=== PATIENT | female | born 1960 | race Asian ===

== ENCOUNTER → 2023-08-30 10:02 | Outpatient (CLI) | payer OTHER, SELFPAY | LOC: LAB 10:03 | PROVIDERS: PCP Nurse Practitioner Family; Referring Provider Nurse Practitioner Family; Visit Provider Nurse Practitioner Family | DX: Z13.1 Encounter for screening for diabetes mellitus (principal); E66.9 Obesity, unspecified | CPT/HCPCS: 36415; 83036 ==

== ENCOUNTER → 2023-10-26 09:07 | Outpatient (CLI) | payer OTHER, SELFPAY ==
--- NOTE | 2023-11-23 10:56 | DIAB.MNT ---
Initial Diabetes Medical Nutrition Therapy Assessment Name: Brunilda Philip Date: 10/26/23 Time: 090-4152a Dx: Type II Diabetes Mallika presents with her for initial Dm visit. Diagnosed in August with hgA1c of 7%. Feels that Dm is overwhelming due to managing dm and heart issues per report. Her and her both have Dm. Loves to eat out on Monday date night. Trying to choose salads when eating out. Now cutting out sugar from coffee and cut out rice completely. Endorses difficulty managing wt. 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 Does not want to take Metformin for DM management. Saw eye doctor this week without concerns Diet Recall: 8-10a: eggs, 2x ye grain bread with rhubarb spread, using avocado and coconut oil 1230p: tea with cherries and water 430-5p: fish with veggies and jello OR meat and veggies sn; sometimes 1-2 small cookies or 1/2 pint ice cream 1/4 x 12oz water, 1-2c tea, coffee 1c, sometimes lemonade Anthropometrics: Ht: 5' Wt: 194# 09/2023 Physical Activity: Walking 20-30 min 4x per week Self-Monitoring Blood Glucose: Checking FBG with a few >130 mg/dl Date Pre Post Pre Post Pre Post HS 6/7 131 6/8 126 6/9 133 6/10 127 6/11 137 6/12 133 /13 122 Diabetes Medications: None Pertinent Labs: hgA1c: 7% 08/2023 Past Medical History: (Last Updated 09/14/23 @ 15:25 by Angy Cabrera [facility]) Cataracts, bilateral (~2018) Diabetes mellitus Hyperlipidemia Hypertension Seasonal allergies Nutrition Rx: Carbohydrates: Meal:30-45g Snack:15-30g Nutrition Diagnosis: - Intervention: This participant was very receptive. Provided appropriate educational handouts. Discussed the following topics: Completed intake assessment. Discussed barriers to care. Pathophysiology of T2DM HgA1c, its correlation to blood glucose numbers, and rationale for goal Importance of self-monitoring, how often, and when to check. Suggested checking at different times to evaluate meals Plate Method, impact of macronutrients on blood sugar, meal timing, pairing macronutrients and spreading out carbohydrates for better blood glucose management Recommended servings for carbohydrates at meals and snacks Heart health nutrition Role of physical activity Created SMART goals for patient self-care and success. Goals: Check a few pc readings Try brown rice Choose whole grain tin bread Start with 6c water per day walk 4 days per week Follow-up: FELIPE JONES follow-up in 3-4 weeks Emma Blake RDN, ROBERT Certified Diabetes Care and Venetian Blind Machine Operator P: [phone] Thank you for this referral
== END ==
LOC: DIET 09:08
PROVIDERS: PCP Nurse Practitioner Family; Referring Provider Nurse Practitioner Family
DX: E11.9 Type 2 diabetes mellitus without complications (principal); Z71.3 Dietary counseling and surveillance
CPT/HCPCS: 97802

== ENCOUNTER → 2023-11-24 16:31 | Outpatient (CLI) | payer OTHER, SELFPAY ==
--- NOTE | 2023-11-24 16:38 | DIAB.MNTFU ---
Follow-up Diabetes Medical Nutrition Therapy Assessment Name: Brunilda Philip Date: 11/24/23 Time: 440-540p Dx: Type II Diabetes Mallika presents for follow-up Dm visit. Has been checking BG. Has increased water intake, which she reports has improved BM. States she notices improvement in her level of fatigue, which likely improved with better blood sugars. Ordering more salads when eating out. Being conscious of CHO intake. No longer adding sweetener to coffee. Reduced ice cream portions to 1/2 c Avoiding all rice, even brown rice. One night went out to eat burger and fries with sweet tea and had elevation above 200mg/dl. Diet Recall: 8-10a: eggs, 2x multigrain bread +/- rhubarb jelly, with meat, tea unsweet 1-130p: low Na chips 1 cup 430-5p: fish with veggies OR meat and veggies sn;: 1/2 c ice cream 36oz water per day, 1-2c tea, coffee 1c Anthropometrics: Ht: 5' Wt: 194# 09/2023 Physical Activity: Walking 20-30 min 3-4x per week after lunch. Self-Monitoring Blood Glucose: Checking FBG and some pc readings. All in goal with an exception of a few FBG and one pc readings after fast food with sweet beverage, up to 253 mg/dl. FBG running 111-130 most days with a few in low 140s. Diabetes Medications: None Pertinent Labs: hgA1c: 7% 08/2023 Past Medical History: (Last Updated 09/14/23 @ 15:25 by Angy Cabrera, [facility]) Cataracts, bilateral (~2019) Diabetes mellitus Hyperlipidemia Hypertension Seasonal allergies Nutrition Rx: Carbohydrates: Meal:30-45g Snack:15-30g Nutrition Diagnosis: - Excessive Na intake r/t eating out frequency aeb pt report - Food and nutrition related knowledge deficit r/t new dx T2Dm aeb elevated hgA1c and pt report Intervention: This participant was very receptive. Provided appropriate educational handouts. Discussed the following topics: Completed intake assessment. Discussed barriers to care. nutrition myths and discuss how to sustain healthy eating long-term through moderation and variety Define macronutrients and determine their impact on blood sugars Discuss macronutrient pairing, Plate Method, and carb counting Review general recommendations for carbohydrates Practice label reading Discuss the role of fiber in diabetes and provide examples of sources Review heart health nutrition: fats, fiber, and sodium Determine recommendations for grocery shopping and eating out Discuss alcohol recommendations Review the role of substitute sugars in diabetes management Review of BG trends and goals Created SMART goals for patient self-care and success. Goals: Check a few pc readings- met Try brown rice- d/c Choose whole grain thin bread- could not find Start with 6c water per day - met walk 4 days per week - improved take out your measuring cups to measure carbs- new Discuss reducing eating out frequency with - new Follow-up: FELIPE JONES follow-up in 3-4 weeks Emma Blake RDN, ROBERT Certified Diabetes Care and Home Sales Consultant P: [phone] Thank you for this referral
== END ==
LOC: DIET 16:31
PROVIDERS: PCP Nurse Practitioner Family; Referring Provider Nurse Practitioner Family
DX: E11.9 Type 2 diabetes mellitus without complications (principal); Z71.3 Dietary counseling and surveillance
CPT/HCPCS: 97803

== ENCOUNTER → 2023-12-27 13:39 | Outpatient (CLI) | payer OTHER, SELFPAY ==
--- NOTE | 2024-02-13 10:06 | DIAB.FU ---
Follow-up Diabetes Education Assessment Name: Brunilda Philip Date: 12/27/23 Time: 205-250p Dx: Type II Diabetes Mallika presents for follow-up Dm visit. Reports increased energy with improved BG. States she can now walk without fatigue and with more pace. States she feels color mixer in general. Endorses balanced breakfast, recent reading of 97mg/dl after open faced breakfast sandwich with veggies. Putting cream on feet due to dryness to reduce risk of cracks/infection. Dental q 3 months up to date on eye appt Has been working on reducing eating out Interested in classes, but unable to attend. Would like to review class two info today. Anthropometrics: Ht: 5' Wt: 194# 09/2023 Physical Activity: Walking 20-30 min 3-4x per week after lunch. Self-Monitoring Blood Glucose: Checking FBG and some pc readings. most in goal. Recent FB, 107, 118, 114, 121 Postprandial: 97, 122, 113 Diabetes Medications: None Pertinent Labs: hgA1c: 7% 08/2023 Past Medical History: (Last Updated 09/14/23 @ 15:25 by Angy Cabrera, [facility]) Cataracts, bilateral (~2018) Diabetes mellitus Hyperlipidemia Hypertension Seasonal allergies Intervention: This participant was very receptive. Provided appropriate educational handouts. Discussed the following topics: BG trends and review Hyperglycemia and impact on energy/fatigue Diabetes pathophysiology Discuss different types of diabetes Review criteria for diagnosing diabetes Review HgA1c measurement and associated blood sugars Review blood sugar monitoring safety, technique, and goals Discuss ways to reduce complications associated with diabetes, includes microvascular and macrovascular complications Review diabetes medications types, action, and side effects Health care visits recommended for people with T2DM Immunization recommended for people with T2DM SMART goals review Goals: Check a few pc readings- met Try brown rice- d/c Choose whole grain thin bread- could not find Start with 6c water per day - met walk 4 days per week - improved take out your measuring cups to measure carbs- new Discuss reducing eating out frequency with - new Follow-up: FELIPE JONES follow-up in 2-3 months Emma Blake RDN, ROBERT Certified Diabetes Care and Design Engineer Agricultural Equipment P: [phone] Thank you for this referral
== END ==
PROVIDERS: PCP Nurse Practitioner Family; Referring Provider Nurse Practitioner Family
DX: E11.9 Type 2 diabetes mellitus without complications (principal); Z71.3 Dietary counseling and surveillance
CPT/HCPCS: G0108

== ENCOUNTER → 2023-12-28 08:36 | Outpatient (CLI) | payer OTHER, SELFPAY ==
[2023-12-28 10:08] LABS: Add Manual Diff / Slide Review NO; Basophils Absolute Auto 0 /uL (0-100); Basophils Percent Auto 0.3 % (0-2); Eosinophils Absolute Auto 100 /uL (0-450); Eosinophils Percent Auto 1.5 % (2-4); Hematocrit 40.8 % (36-46); Hemoglobin 13.6 g/dL (12.0-16.0); Lymphocytes Absolute Auto 2500 /uL (1100-4500); Lymphocytes Percent Auto 38.4 % (25-40); Mean Corpuscular HGB Conc 33.4 % (30-36); Mean Corpuscular Hemoglobin 30.3 PG (26-34); Mean Corpuscular Volume 90.8 fL (80-100); Monocytes Absolute Auto 500 /uL (0-900); Monocytes Percent Auto 7.2 % (3-14); Neutrophils Absolute Auto 3400 /uL (1500-7000); Neutrophils Percent Auto 52.6 % (50-75); Platelet Count 187 X10^3/uL (150-400); Red Cell Distribution Width 13.9 % (11.6-14.8); White Blood Cell Count 6.5 X10^3/uL (4.5-11.0)
[2023-12-28 10:30] LABS: Hemoglobin A1C% w Est Avg Glu 6.2 % (4.0-6.0)
[2023-12-28 10:33] LABS: Alanine Aminotransferase 43 IU/L (<35); Albumin 3.9 g/dL (3.5-5.0); Albumin Globulin Ratio 1.4 (1.0-2.8); Alkaline Phosphatase 58 U/L (38-126); Aspartate Aminotransferase 28 IU/L (14-36); BUN Creatinine Ratio 27.4 (6-22); Bilirubin Total 0.8 mg/dL (0.2-1.3); Blood Urea Nitrogen 17 mg/dL (7-17); Calcium 10.1 mg/dL (8.4-10.2); Carbon Dioxide 27 mmol/L (22-32); Chloride 105 mmol/L (98-107); Cholesterol 100 mg/dL (140-199); Estimated Glomerular Filt Rate > 60 mL/min (>60); Globulin 2.8 g/dL (1.7-4.1); Glucose 115 mg/dL (80-110); HDL Cholesterol 40 mg/dL (40-60); HEMOLYSIS < 15 (0-50); LDL Cholesterol Calculated 49 mg/dL (<100); Sodium 139 mmol/L (137-145); Total Protein 6.7 g/dL (6.3-8.2); Triglycerides 55 mg/dL (35-150)
[2023-12-28 11:01] LABS: TSH w/ Reflex to FT4 1.87 uIU/mL (0.47-4.68)
== END ==
LOC: LAB 08:37
PROVIDERS: PCP Nurse Practitioner Family; Referring Provider Nurse Practitioner Family; Visit Provider Nurse Practitioner Family
DX: E11.9 Type 2 diabetes mellitus without complications (principal); I25.10 Atherosclerotic heart disease of native coronary artery without angina pectoris; E78.5 Hyperlipidemia, unspecified; I10 Essential (primary) hypertension
CPT/HCPCS: 36415; 80053; 80061; 83036; 84443; 85025

== ENCOUNTER → 2024-03-20 08:47 | Outpatient (CLI) | payer OTHER, SELFPAY ==
--- NOTE | 2024-03-20 09:50 | DIAB.MNTFU ---
Follow-up Diabetes Medical Nutrition Therapy Assessment Name: Brunilda Philip Date: 03/20/24 Time: 90a Dx: Type II Diabetes Mallika presents for follow-up Dm visit. Has continued with lower CHO diet. No rice, but increased snack and ice cream after low CHO dinner each night. BG overall well managed, though there are no postprandial numbers for review. Recent HgA1c much improved ta 6.2% in December. Using measuring cups and weighing foods. Has questions about bittermelon portions, non starchy veg. Eating half portions when eating out. Did discuss reducing eating out with . He too has been making health changes due to recent labs. Endorses less falling asleep during tv or reading since improved BG. Diet recall; 10a: thin bread, davalos sometimes, +/- egg and coffee with little sweet creamer 4-5p: soup with veggies and meat 5p: 1/2-1c ice cream OR veggie stick chips OR 1 piece of chocolate Anthropometrics: Ht: 5' Wt: 191.5# 12/2023 194# 09/2023 Physical Activity: Walking 30 min daily. States cad application support specialist rec'd 60 mins per day. Self-Monitoring Blood Glucose: Checking FBG and HS. most in goal. Forgets to check pc readings after dinner/snack. Recent FBG all in goal per reprot: 98-130mg/dl HS: reported highest 148mg/dl Diabetes Medications: None Pertinent Labs: hgA1c: 7% 08/2023 6.2% 12/2023 Past Medical History: (Last Updated 09/14/23 @ 15:25 by Angy Cabrera, [facility]) Cataracts, bilateral (~2018) Diabetes mellitus Hyperlipidemia Hypertension Seasonal allergies Nutrition Rx: Carbohydrates: Meal:30-45g Snack:15-30g Nutrition Diagnosis: - Inadequate fiber intake r/t limited whole grains, fruit or veggies aeb diet recall Intervention: This participant was very receptive. Provided appropriate educational handouts. Discussed the following topics: BG trends and review Nonstarchy veg benefits and portion recs Eating out recs Physical activity strategies: resistance 2x per week and ways to increase cardio during the day, ie stationary bike higher fiber CHO options Goals: Choose whole grain thin bread- met walk 4 days per week - met take out your measuring cups to measure carbs- met Discuss reducing eating out frequency with - met Set a timer to check 1-2 hours after evening meal/snack- new Try brown rice at dinner 1/2-2/3c - new Follow-up: FELIPE JONES follow-up in September per pt req. Emma Blake, FELIPE, ROBERT Certified Diabetes Care and Manager Culinary P: [phone] Thank you for this referral
== END ==
PROVIDERS: PCP Nurse Practitioner Family; Referring Provider Nurse Practitioner Family
DX: E11.9 Type 2 diabetes mellitus without complications (principal); Z71.3 Dietary counseling and surveillance; I10 Essential (primary) hypertension; E78.2 Mixed hyperlipidemia; Z68.30 Body mass index [BMI] 30.0-30.9, adult
CPT/HCPCS: 97803

== ENCOUNTER → 2024-03-20 10:53 | Outpatient (CLI) | payer OTHER, SELFPAY ==
[2024-03-20 12:18] LABS: Hemoglobin A1C% w Est Avg Glu 6.5 % (4.0-6.0)
== END ==
PROVIDERS: PCP Nurse Practitioner Family; Referring Provider Nurse Practitioner Family; Visit Provider Nurse Practitioner Family
DX: E11.9 Type 2 diabetes mellitus without complications (principal); Z71.3 Dietary counseling and surveillance; I10 Essential (primary) hypertension; E78.2 Mixed hyperlipidemia; Z68.30 Body mass index [BMI] 30.0-30.9, adult
CPT/HCPCS: 36415; 83036; 97803

== ENCOUNTER 2024-08-15 07:51 | Day surgery (SDC) | payer OTHER, SELFPAY ==
[2024-08-15 08:43] VITALS: BP 150/83; PULSE 85; RESP 18; TEMP 36.1; O2SAT 95
[2024-08-15] MEDS: LACTATED RINGERS 1,000 ML 42 ML IV (08:53)
--- NOTE | 2024-08-15 09:58 | PM.HP.IH.1 ---
History of Present Illness History of Present Illness Date Patient Seen: 08/15/24 Time Patient Seen: 09:59 Chief complaint: SDC Narrative: Brunilda is a 64-year-old woman who is here for a screening colonoscopy. She has had one other screening colonoscopy 14 years ago at age 50. No family history of colon cancer. [facility] Medical History (Updated 08/15/24 @ 09:59 by Anastacio Diaz MD) Obstructive sleep apnea Diabetes mellitus Seasonal allergies Cataracts, bilateral (~2018) Hyperlipidemia Hypertension Surgical History (Updated 08/30/23 @ 09:36 by Vanita Welch MA) S/P LASIK surgery of both eyes (~2022) Hx of cataract surgery (~2018) H/O total hysterectomy with bilateral salpingo-oophorectomy (BSO) (~2007) S/P repair of PDA (patent ductus arteriosus) (~1982) Stented coronary artery (~2012) Hx of CABG (~2012) Family History (Updated 08/30/23 @ 09:25 by Vanita Welch MA) Father Hypertension Mother Heart disease Social History (Updated 08/30/23 @ 09:22 by Vanita Welch MA) marital status: household members: spouse and family lives independently: Yes education level: high school occupational status: other Smoking Status: Never smoker alcohol intake: never Meds Home Medications and Allergies Home Medications Medication Instructions Recorded Confirmed Type aspirin 81 mg tablet,delayed 81 mg PO DAILY #90 tabs 09/25/23 08/15/24 Rx release atorvastatin 40 mg tablet 40 mg PO QPM #90 tabs 09/25/23 08/15/24 Rx blood-glucose meter (FreeStyle #1 ea 09/25/23 03/20/24 Rx [place] Lite kit) carvedilol 25 mg tablet 25 mg PO BID #180 tabs 09/25/23 08/15/24 Rx ezetimibe 10 mg tablet (Zetia) 10 mg PO DAILY #90 tabs 09/25/23 08/15/24 Rx fluticasone propionate 50 1 spray intranasal DAILY #48 grams 09/25/23 08/15/24 Rx mcg/actuation nasal spray,suspension lisinopril 20 1 tab PO DAILY #90 tabs 09/25/23 08/15/24 Rx mg-hydrochlorothiazide 25 mg tablet blood sugar diagnostic (FreeStyle #100 ea 12/29/23 03/20/24 Rx Lite Strips) lancets 28 gauge (FreeStyle #100 ea 12/29/23 03/20/24 Rx Lancets) sodium,potassium,mag sulfates 17.5 See Rx Instructions PO .COMPLEX 07/04/24 Rx gram-3.13 gram-1.6 gram oral soln #354 mL (Suprep Bowel Prep Kit) Allergies Allergy/AdvReac Type Severity Reaction Status Date / Time No Known Drug Allergies Allergy Verified 08/15/24 08:39 Exam Vital Signs (past 8 hours): - 08/15/24 08:43 Temperature 97 F L Pulse Rate 85 Respiratory Rate 18 Blood Pressure 150/83 H Pulse Oximetry 95 Oxygen Delivery Method Room Air Oxygen Delivery Method Room Air Const General: No acute distress Resp Effort & Inspection: normal respiratory effort Assessment & Plan Assessment and plan (1) Colon cancer screening: Status: Acute Plan Colonoscopy Time-Based Coding :: [TOTAL MINUTES] spent with patient and on the chart (including review of chart, obtaining history, exam, reviewing outside data, placing orders, documenting exam and treatment plan, and counseling patient) on [DATE]. PROFEE Asbestos Abatement Technician Document charge(s): No
--- NOTE | 2024-08-15 10:24 | PM.OP.COLON ---
Operative Date/Time/Diagnoses Date of procedure: 08/15/24 Time of procedure: 10:24 Pre-op diagnosis: Colon cancer screening Post-op diagnosis: same Procedure & Clinicians Study performed: Colonoscopy Same procedure as scheduled: Yes Surgeon: Anastacio Diaz Procedure Notes Procedure in detail: Surgeon: Anastacio Diaz MD Anesthesia: Kenisha Linder CRNA Procedure: The patient was brought to the endoscopy suite, placed in left lateral decubitus position. The patient was connected to monitoring devices. A time-out was performed. Sedation was administered. Once the patient was adequately sedated, a digital rectal exam was performed and was normal. The scope was then inserted and advanced to the cecum where the appendiceal orifice was identified and photographed. The scope was then slowly withdrawn over greater than 6 minutes. The mucosa was thoroughly inspected. No abnormalities were found. The scope was retroflexed in the rectum. The scope was straightened and removed. The patient was awakened and brought to recovery. Scope withdrawal time: 8 minutes Sedation time: 15 minutes EBL: 0 Findings: Normal colon Post-procedure Recommendations: Colonoscopy in 10 years Disposition: PACU
[2024-08-15 10:25] VITALS: BP 107/51; PULSE 73; RESP 14; TEMP 36.7; O2SAT 100
[2024-08-15 10:33] VITALS: BP 110/54; PULSE 76; RESP 17; TEMP 36.6; O2SAT 100
[2024-08-15 10:38] VITALS: BP 105/58; PULSE 75; RESP 15; O2SAT 99
== END 2024-08-15 10:45 | disposition home or self-care (01) ==
PROVIDERS: PCP Nurse Practitioner Family; Referring Provider Surgery; Visit Provider Surgery
PROC: 0DJD8ZZ Inspection of Lower Intestinal Tract, Via Natural or Artificial Opening Endoscopic (ICD-10-PCS; CPT 45378; principal; 2024-08-15 09:15)
DX: Z12.11 Encounter for screening for malignant neoplasm of colon (principal)
CPT/HCPCS: 45378; J2704

== ENCOUNTER → 2024-09-18 08:56 | Outpatient (CLI) | payer OTHER, SELFPAY ==
[2024-09-18 10:02] LABS: Add Manual Diff / Slide Review NO; Basophils Absolute Auto 0 /uL (0-100); Basophils Percent Auto 0.5 % (0-2); Eosinophils Absolute Auto 100 /uL (0-450); Eosinophils Percent Auto 2.2 % (2-4); Hematocrit 41.3 % (36-46); Hemoglobin 13.8 g/dL (12.0-16.0); Lymphocytes Absolute Auto 2400 /uL (1100-4500); Lymphocytes Percent Auto 40.3 % (25-40); Mean Corpuscular HGB Conc 33.4 % (30-36); Mean Corpuscular Hemoglobin 30.3 PG (26-34); Mean Corpuscular Volume 90.6 fL (80-100); Monocytes Absolute Auto 400 /uL (0-900); Monocytes Percent Auto 7.4 % (3-14); Neutrophils Absolute Auto 2900 /uL (1500-7000); Neutrophils Percent Auto 49.6 % (50-75); Platelet Count 199 X10^3/uL (150-400); Red Blood Cell Count 4.56 X10^6/uL (4.0-5.2); Red Cell Distribution Width 14.2 % (11.6-14.8); White Blood Cell Count 5.9 X10^3/uL (4.5-11.0)
[2024-09-18 10:09] LABS: Hemoglobin A1C% w Est Avg Glu 6.1 % (4.0-6.0)
[2024-09-18 10:21] LABS: Alanine Aminotransferase 29 IU/L (<35); Albumin 4.1 g/dL (3.5-5.0); Albumin Globulin Ratio 1.5 (1.0-2.8); Alkaline Phosphatase 59 U/L (38-126); Aspartate Aminotransferase 29 IU/L (14-36); BUN Creatinine Ratio 22.1 (6-22); Bilirubin Total 0.9 mg/dL (0.2-1.3); Blood Urea Nitrogen 15 mg/dL (7-17); Calcium 10.3 mg/dL (8.4-10.2); Carbon Dioxide 25 mmol/L (22-32); Chloride 106 mmol/L (98-107); Cholesterol 101 mg/dL (140-199); Estimated Glomerular Filt Rate > 60 mL/min (>60); Globulin 2.8 g/dL (1.7-4.1); Glucose 106 mg/dL (70-99); HDL Cholesterol 41 mg/dL (40-60); HEMOLYSIS < 15 (0-50); LDL Cholesterol Calculated 48 mg/dL (<100); Sodium 140 mmol/L (137-145); Total Protein 6.9 g/dL (6.3-8.2); Triglycerides 61 mg/dL (35-150)
[2024-09-18 10:50] LABS: Hepatitis B Surface Antigen NEGATIVE s/c (NEGATIVE)
[2024-09-18 11:13] LABS: HIV 1 & 2 Ab/Ag 4th Gen Combo NEGATIVE (NEGATIVE); Hep C Virus Ab w/Reflex Quant REACTIVE s/c (NEGATIVE)
== END ==
LOC: LAB 08:57
PROVIDERS: PCP Nurse Practitioner Family; Referring Provider Nurse Practitioner Family; Visit Provider Nurse Practitioner Family
DX: Z11.59 Encounter for screening for other viral diseases (principal); Z11.4 Encounter for screening for human immunodeficiency virus [HIV]; E78.5 Hyperlipidemia, unspecified; I10 Essential (primary) hypertension; E11.9 Type 2 diabetes mellitus without complications; Z95.1 Presence of aortocoronary bypass graft; Z95.5 Presence of coronary angioplasty implant and graft
CPT/HCPCS: 36415; 80053; 80061; 83036; 85025; 86803; 87340; 87389; 87522

== ENCOUNTER → 2024-09-25 10:51 | Outpatient (CLI) | payer OTHER, SELFPAY ==
--- NOTE | 2024-09-25 14:16 | DIAB.MNTFU ---
Follow-up Diabetes Medical Nutrition Therapy Assessment Name: Brunilda Philip Date: 09/25/24 Time: Dx: Type II Diabetes Mallika presents for follow-up Dm visit. Great hg1c of 6.1% this month. Has continued with lower CHO diet. No or reduced rice intake, even during her visit to the [facility] per report. Has tried incorporating more brown rice. Eating half portions when eating out. Increased water intake. Feeling less fatigue and less SOB. Has had some wt loss since last visit as well. Diet recall; 8-9a: thin bread, meat +/- greens and coffee with little sweet creamer sn: 1oz bag chips 4-:veggies and meat 5p: 1/2-1c ice cream OR veggie stick chips OR 1 piece of chocolate Anthropometrics: Ht: 5' Wt: 156# 09/2024 191.5# 12/2023 194# 09/2023 Physical Activity: Walking 30 min 3x per week. Plans to restart chair yoga. Self-Monitoring Blood Glucose: Checking FBG. Recent FBG all in goal per reprot: 110-130mg/dl Diabetes Medications: None Pertinent Labs: hgA1c: 7% 08/2023 6.2% 12/2023 6.1% 09/2024 Past Medical History: (Last Updated 09/14/23 @ 15:25 [facility] Cataracts, bilateral (~2018) Diabetes mellitus Hyperlipidemia Hypertension Seasonal allergies Nutrition Rx: Carbohydrates: Meal:30-45g Snack:15-30g Nutrition Diagnosis: - Inadequate fiber intake r/t limited whole grains, fruit or veggies aeb diet recall- improved/in progress Intervention: This participant was very receptive. Provided appropriate educational handouts. Discussed the following topics: BG trends and review Incorporating higher fiber Physical activity Goals: Set a timer to check 1-2 hours after evening meal/snack- not met Try brown rice at dinner 1/2-2/3c - met Restart chair yoga- new Follow-up: FELIPE JONES follow-up in 3-6 months Emma Blake RDN, ROBERT Certified Diabetes Care and Roller Maker P: [phone] Thank you for this referral
== END ==
PROVIDERS: PCP Nurse Practitioner Family; Referring Provider Nurse Practitioner Family
DX: E11.9 Type 2 diabetes mellitus without complications (principal); Z71.3 Dietary counseling and surveillance
CPT/HCPCS: 97803

== ENCOUNTER → 2025-04-18 10:53 | Outpatient (CLI) | payer MEDICARE, OTHER, SELFPAY ==
--- NOTE | 2025-05-22 16:21 | DIAB.MNTFU ---
Follow-up Diabetes Medical Nutrition Therapy Assessment Name: Brunilda Philip Date: 04/18/25 Time: 1296-6906o Dx: Type II Diabetes Mallika presents for follow-up Dm visit. Last visit 09/2024. Continues to limit rice portion. Restarted chair yoga. having some right knee pain. Plans to see ortho. Diet Recall: 8-9a: Thin ww bread, meat, greens sn: nothing or crackers 4-5p: veggies, quinoa, beans water coffee +/- creamer Notices constipation when water intake reduced. Veggies 4x per week. Anthropometrics: Ht: 5' Wt: 187# 03/2025 191.5# 12/2023 194# 09/2023 Physical Activity: Chair yoga. No walking right now due to knee. Plans to start PT. Self-Monitoring Blood Glucose: Checking FBG. Recent FBG all in goal per report: 104-130mg/dl Diabetes Medications: None Pertinent Labs: hgA1c: 7% 08/2023 6.2% 12/2023 6.1% 09/2024 Past Medical History: (Last Updated 09/14/23 @ 15:25 by Angy Cabrera [facility]) Cataracts, bilateral (~2018) Diabetes mellitus Hyperlipidemia Hypertension Seasonal allergies Nutrition Rx: Carbohydrates: Meal:30-45gSnack:15-30g Nutrition Diagnosis: - Inadequate fiber intake r/t limited whole grains, fruit or veggies aeb diet recall- improved - Physical inactivity r/t knee pain aeb pt report- new Intervention: This participant was very receptive. Provided appropriate educational handouts. Discussed the following topics: BG trends and review Veggie intake Physical activity goals and barriers Meal/snack timing Goals: Restart chair yoga- met Have a snack mid day- new Call ortho- new Consider small stationary bike- new Follow-up: FELIPE JONES follow-up in 3-6 months. Emma Blake, FELIPE, ROBERT Certified Diabetes Care and Bottled Beverage Inspector P: [phone] Thank you for this referral
== END ==
PROVIDERS: PCP Nurse Practitioner Family; Referring Provider Nurse Practitioner Family
DX: E11.9 Type 2 diabetes mellitus without complications (principal); Z71.3 Dietary counseling and surveillance
CPT/HCPCS: 97803